=== PATIENT | female | born 1990 | race Two or more races ===

== ENCOUNTER 2016-11-17 13:17 | Emergency (ER) | payer OTHER ==
[~2016-11-17] VITALS: Ht 160 cm; Wt 55.4 kg
[2016-11-17 13:18] VITALS: BP 116/77
== END 2016-11-17 15:07 | disposition home or self-care (01) ==
LOC: ED 15:00
DX: R35.0 Frequency of micturition (principal)
CPT/HCPCS: 81003; 99283